=== PATIENT | female | born 1990 | race Caucasian/White ===

== ENCOUNTER 2017-06-10 23:14 | Emergency (ER) | payer OTHER ==
[2017-06-11 00:31] VITALS: BP 119/68; PULSE 53; TEMP 98.1; BMI 21.4
[2017-06-11 02:20] LABS: URINE APPEARANCE CLEAR; URINE BILIRUBIN NEGATIVE (NEGATIVE); URINE BLOOD NEGATIVE (NEGATIVE); URINE COLOR YELLOW; URINE GLUCOSE (UA) NEGATIVE (NEGATIVE); URINE KETONE 1+ (NEGATIVE); URINE NITRITE NEGATIVE (NEGATIVE); URINE PROTEIN NEGATIVE (NEGATIVE)
--- NOTE | 2017-06-11 02:33 | PDOC ---
History of Present Illness - General Chief Complaint: Pain Stated Complaint: STOMACH PAIN Time Seen by Provider: 06/11/17 02:33 - History of Present Illness Initial Comments: 06/11/17 02:39 Ms. Rao is a 27 yo female w/ pmh of hypothyroidism on synthroid who presents c/o a 1 day history of abdominal pain she localizes to the epigastric region. She reports she has had this pain since last night before dinner. She has had this pain one other time before and presented here for evaluation then as well. At that time she was given pepcid, maalox, and 1L NS with resolution of symptoms. The patient denies chest pain, shortness of breath, headache and dizziness. Denies fever, chills, nausea, vomit, diarrhea and constipation. Denies dysuria, frequency, urgency and hematuria. Allergies: NKDA Past History - Past Medical History Allergies/Adverse Reactions: Allergies Allergy/AdvReac Type Severity Reaction Status Date / Time No Known Drug Allergies Allergy Verified 06/11/17 00:29 Home Medications: Ambulatory Orders Levothyroxine [Synthroid -] 75 mcg PO DAILY 12/09/14 Calcium Carbonate/Simethicone [Maalox Advanced Tab Chew] 1 each PO ASDIR #20 tab.chew 06/11/17 Famotidine [Pepcid] 20 mg PO DAILY #20 tablet 06/11/17 Asthma: No Cancer: No Cardiac Disorders: No Diabetes: No HTN: No Seizures: No Thyroid Disease: Yes (Hypothyroid - takes synthroid) - Immunization History Immunization Up to Date: Yes - Suicide/Smoking/Psychosocial Hx Smoking History: Never smoked Have you smoked in the past 12 months: No Information on smoking cessation initiated: No Hx Alcohol Use: No Drug/Substance Use Hx: No Substance Use Type: None Hx Substance Use Treatment: No Review of Systems - Review of Systems Comments:: 06/11/17 03:56 GENERAL/CONSTITUTIONAL: No fever or chills. No weakness. HEAD, EYES, EARS, NOSE AND THROAT: No change in vision. No ear pain or discharge. No sore throat. CARDIOVASCULAR: No chest pain or shortness of breath RESPIRATORY: No cough, wheezing, or hemoptysis. GASTROINTESTINAL: +Pain above the belly-button described. No nausea, vomiting, diarrhea or constipation. GENITOURINARY: No dysuria, frequency, or change in urination. MUSCULOSKELETAL: No joint or muscle swelling or pain. No neck or back pain. SKIN: No rash NEUROLOGIC: No headache, vertigo, loss of consciousness, or change in strength/ sensation. ENDOCRINE: No increased thirst. No abnormal weight change HEMATOLOGIC/LYMPHATIC: No anemia, easy bleeding, or history of blood clots. ALLERGIC/IMMUNOLOGIC: No hives or skin allergy. *Physical Exam - Vital Signs Last Vital Signs Temp Pulse Resp BP Pulse Ox 98.1 F 53 L 14 119/68 99 06/11/17 00:29 06/11/17 00:29 06/11/17 00:29 06/11/17 00:29 06/11/17 00:29 - Physical Exam Comments: 06/11/17 03:56 GENERAL: Awake, alert, and fully oriented, in no acute distress HEAD: No signs of trauma, normocephalic, atraumatic EYES: PERRLA, EOMI, sclera anicteric, conjunctiva clear ENT: Auricles normal inspection, hearing grossly normal, nares patent, oropharynx clear without exudates. Moist mucosa NECK: Normal ROM, supple, no lymphadenopathy, JVD, or masses LUNGS: No distress, speaks full sentences, clear to auscultation bilaterally HEART: Regular rate and rhythm, normal S1 and S2, no murmurs, rubs or gallops, peripheral pulses normal and equal bilaterally. ABDOMEN: +TTP in epigastric region directly midline. Soft, normoactive bowel sounds. No guarding, no rebound. No masses EXTREMITIES: Normal inspection, Normal range of motion, no edema. No clubbing or cyanosis. NEUROLOGICAL: Cranial nerves II through XII grossly intact. Normal speech, normal gait, no focal sensorimotor deficits SKIN: Warm, Dry, normal turgor, no rashes or lesions noted. ED Treatment Course - LABORATORY CBC & Chemistry Diagram: 06/11/17 02:56 06/11/17 02:56 - ADDITIONAL ORDERS Additional order review: Laboratory Results 06/11/17 02:00 Urine Color Yellow Urine Appearance Clear Urine pH 6.0 Ur Specific [place] 1.031 Urine Protein Negative Urine Glucose (UA) Negative Urine Ketones 1+ H Urine Blood Negative Urine Nitrite Negative Urine Bilirubin Negative Urine Urobilinogen 2.0 H Urine HCG, Qual Negative Medical Decision Making - Medical Decision Making 06/11/17 03:57 Ms. Rao presents w/ symptoms she reports as identical to her prior presentation. CBC/CMP/Lipase taken for analysis of acute causes. 1L NS, Pepcid, and maalox given for symptomatic relief as this was successful in relieving her pain at her prior presentation. 06/11/17 05:19 Patient reports resolution of pain. Given this and labs grossly wnl, will d/c to home with instructions to follow-up w/ pcp in 1-2 days. Also will give GI referral. *DC/Admit/Observation/Transfer Diagnosis at time of Disposition: Reflux gastritis - Discharge Dispostion Disposition: HOME - Prescriptions Prescriptions: Calcium Carbonate/Simethicone [Maalox Advanced Tab Chew] 1 each PO ASDIR #20 tab.chew Famotidine [Pepcid] 20 mg PO DAILY #20 tablet - Referrals Referrals: Rula Gracia MD [Primary Care Provider] - - Patient Instructions Printed Discharge Instructions: DI for Abdominal Pain-Adult Additional Instructions: Follow-up with follow-up with Dr. Gracia within 2-3 days for referral to a brass burnisher (stomach doctor). There is a possibility that you need H. pylori testing as a possible cause of your pain. Return to the emergency department if you have any new, worsening or concerning symptoms. - Post Discharge Activity
[2017-06-11] MEDS ORDERED: MAG HYDROX/AL HYDROX/SIMETH 30 ML UNIT-DOSE CUP PO ONE (02:43)
[2017-06-11] MEDS ORDERED: SODIUM CHLORIDE 1,000 ML IV STA (02:43)
[2017-06-11] MEDS ORDERED: FAMOTIDINE IV 20 MG/12 ML VIAL IVPUSH SCH (02:45)
[2017-06-11] MEDS ORDERED: FAMOTIDINE 20 MG/50 ML IVPB 20 MG/50 ML MG IVPB ONE (02:52)
[2017-06-11] MEDS ORDERED: MAG HYDROX/AL HYDROX/SIMETH 30 ML UNIT-DOSE CUP ONE (02:52)
[2017-06-11 03:12] LABS: BASOPHIL 1.2 % (0-2.0); EOSINOPHIL 0.2 % (0-4.5); MCH 26.8 pg (25.7-33.7); MCHC 32.8 g/dl (32.0-36.0); MEAN CELL VOLUME 81.8 fl (80-96); MEAN PLT VOLUME 11.7 fl (7.5-11.1); NEUTROPHILS 69.9 % (42.8-82.8); PLATELET COUNT 220 K/MM3 (134-434); RDW 13.4 % (11.6-15.6)
[2017-06-11 03:38] LABS: ALBUMIN 3.9 g/dl (3.4-5.0); ALK PHOS 37 U/L (45-117); ANION GAP 10 (8-16); BILIRUBIN,TOTAL 0.2 mg/dL (0.2-1.0); CO2 25 mmol/L (21-32); CREATININE 0.5 mg/dL (0.55-1.02); GLUCOSE,RANDOM 125 mg/dL (74-106); SGOT/AST 8 U/L (15-37); SGPT/ALT 22 U/L (12-78); TOT PROT 7.8 g/dl (6.4-8.2)
--- NOTE | 2017-06-11 03:56 | PDOC ---
Attending Attestation - Resident Resident Name: Ulices Vanegas - HPI HPI: 06/11/17 03:53 27yo F hx hypothyroidsim p/w 1 day of epigastric abdominal pain. Pain is dull, non radiating, began before dinner. Patient relates the pain to eating fish. Denies N/V/D. Reports that the pain has subsided since being in the emergency department. Denies any history of abdominal surgery. Denies any urinary symptoms. Denies any vaginal bleeding or discharge. Otherwise, patient denies any dark or bloody stools, fevers, chills, chest pain , shortness of breath, lower extremity edema, headaches, focal weakness or numbness. - Physicial Exam PE: 06/11/17 05:25 GENERAL: Awake, alert, and fully oriented, in no acute distress HEAD: No signs of trauma EYES: PERRLA, EOMI, sclera anicteric, conjunctiva clear ENT: Auricles normal inspection, hearing grossly normal, nares patent, oropharynx clear without exudates. Moist mucosa NECK: Normal ROM, supple, no lymphadenopathy, JVD, or masses LUNGS: Breath sounds equal, clear to auscultation bilaterally. No wheezes, and no crackles HEART: Regular rate and rhythm, normal S1 and S2, no murmurs, rubs or gallops ABDOMEN: Soft, minimal epigastric ttp, normoactive bowel sounds. No guarding, no rebound. No masses. No CVAT EXTREMITIES: Normal range of motion, no edema. No clubbing or cyanosis. No cords, erythema, or tenderness NEUROLOGICAL: Normal speech, cranial nerves intact, negative pronator drift, 5/ 5 strength in all 4 extremities, normal sensation to light touch in all 4 extremities, normal cerebellar exam, normal gait, normal reflexes and tone SKIN: Warm, Dry, normal turgor, no rashes or lesions noted. - Medical Decision Making 06/11/17 05:25 27-year-old female presents with epigastric abdominal pain. Vitals are unremarkable. Exam with minimal epigastric tenderness to palpation. Differential includes but not limited to gastritis versus pancreatitis versus cholecystitis versus .
[2017-06-11 12:22] LABS: URINE LEUK ESTERASE Negative (NEGATIVE)
== END 2017-06-11 05:26 | disposition home or self-care (01) ==
LOC: JER 23:14
PROC: 3E033GC Introduction of Other Therapeutic Substance into Peripheral Vein, Percutaneous Approach (ICD-10-PCS; principal; 2017-06-10)
PROC: 3E0337Z Introduction of Electrolytic and Water Balance Substance into Peripheral Vein, Percutaneous Approach (ICD-10-PCS; 2017-06-10)
DX: K29.60 Other gastritis without bleeding (principal); E03.9 Hypothyroidism, unspecified
CPT/HCPCS: 36415; 80053; 81003; 83690; 84703; 85025; 87086; 96361; 96365; 99281-25; 99283-25

== ENCOUNTER 2019-04-13 07:00 | Inpatient (IN) | payer OTHER ==
[2019-04-13 07:56] LABS: BASO % 0.8 % (0-2.0); EOS % 0.7 % (0-4.5); HEMATOCRIT 34.9 % (32.4-45.2); HEMOGLOBIN 11.4 GM/dL (10.7-15.3); LYMPH % 32.1 % (8-40); MCHC 32.7 g/dl (32.0-36.0); MEAN CELL VOLUME 76.3 fl (80-96); MEAN PLT VOLUME 10.7 fl (7.5-11.1); MONO % 8.7 % (3.8-10.2); NEUT % 57.7 % (42.8-82.8); PLATELET COUNT 155 K/MM3 (134-434); RBC 4.57 M/mm3 (3.60-5.2); RDW 20.4 % (11.6-15.6); WHITE BLOOD COUNT 6.4 K/mm3 (4.0-10.0)
[2019-04-13 08:00] VITALS: BMI 30.2
[2019-04-13] MEDS ORDERED: CITRIC ACID/SODIUM CITRATE 30 ML UNIT-DOSE CUP PO ONE (08:06)
[2019-04-13] MEDS ORDERED: ELECTROLYTE-148 SOLN 1,000 ML IV SCH (08:15)
[2019-04-13 08:18] LABS: INR 1.01 (0.83-1.09); PROTHROMBIN TIME (PATIENT) 11.9 SEC (9.7-13.0)
[2019-04-13 08:19] LABS: ACTIVATED PTT 28.1 SECONDS (25.2-36.5)
[2019-04-13 08:27] LABS: BLOOD UREA NITROGEN 6.4 mg/dL (7-18); CALCIUM 8.1 mg/dL (8.5-10.1); CREATININE 0.4 mg/dL (0.55-1.3); POTASSIUM 3.4 mmol/L (3.5-5.1)
[2019-04-13] MEDS ORDERED: PROPOFOL 20 ML ONE (09:23)
[2019-04-13] MEDS ORDERED: ePHEDrine SULFATE 50 MG/1 ML AMPULE ONE (09:24)
[2019-04-13] MEDS ORDERED: SUCCINYLCHOLINE CHLORIDE 200 MG/10 ML SYRINGE ONE (09:24)
[2019-04-13] MEDS ORDERED: morphine SULFATE/PF 0.5 MG/ML (2cc Syringe - QUVA) ONE (09:24)
[2019-04-13] MEDS ORDERED: PHENYLEPHRINE HCL 10 MG/1 ML SINGLE DOSE VIAL ONE (09:39)
[2019-04-13] MEDS ORDERED: OXYTOCIN 20 UNITS in 0.9% NS 20 UNIT/1,000 ML INFUS.BAG IV ONE (10:15)
--- NOTE | 2019-04-13 10:24 | SURG ---
Surgery Client Resource Specialist Note Client Resource Specialist: Waldemar Watson PA-C Date of Service: 04/13/19 Diagnosis: repeat Procedure: I was present for the entirety of the operative procedure. For further detail, please refer to operative report. Visit type - Case Type Case Type: Scheduled - Emergency Emergency Visit: No - New patient This patient is new to me today: Yes Date on this admission: 04/13/19 - Critical Care Critical Care patient: No
[2019-04-13] MEDS ORDERED: BENZOCAINE 28 GM HEMORRHOIDAL OINTMENT TP PRN (10:34)
[2019-04-13] MEDS ORDERED: METHYLERGONOVINE MALEATE 0.2 MG/1 ML AMP IM PRN (10:34)
[2019-04-13] MEDS ORDERED: WITCH HAZEL 50% (TUCKS) 40 PAD/JAR PAD TP PRN (10:34)
[2019-04-13] MEDS: IBUPROFEN 800 MG/8 ML IJ IVPB PRN ×2 (11:45→19:38)
[2019-04-13] MEDS ORDERED: IBUPROFEN 800 MG/8 ML IJ IVPB ONE (11:45)
[2019-04-13] MEDS ORDERED: OXYTOCIN 20 UNITS in 0.9% NS 20 UNIT/1,000 ML INFUS.BAG IV SCH (12:45)
[2019-04-14] MEDS: IBUPROFEN 800 MG/8 ML IJ IVPB PRN (03:30)
--- NOTE | 2019-04-14 07:59 | HP ---
Past Medical History - Primary Care Physician PCP:: Berta Duron - Admission Chief Complaint: Previous section History of Present Illness: 29 yo EDC 04/19/19 EGA 39 weeks with previous csx3 for repeat CS no ROM no bleeeding or CABALLERO History Source: Patient Limitations to Obtaining History: No Limitations - Past Medical History ...: 4 ...Para: 3 ...Term: 3 ...: 0 ...Spon : 0 ...Induced : 0 ...Multiple Gestation: 0 ...EDC by Sono: 04/19/19 - Past Surgical History Past Surgical History: Yes: Hx Myomectomy: No Hx Transabdominal Cerclage: No - Smoking History Smoking history: Never smoked Have you smoked in the past 12 months: No - Alcohol/Substance Use Hx Alcohol Use: No History of Substance Use: reports: None - Social History History of Recent Travel: No Home Medications - Allergies Allergies/Adverse Reactions: Allergies Allergy/AdvReac Type Severity Reaction Status Date / Time No Known Drug Allergies Allergy Verified 04/13/19 07:32 - Home Medications Home Medications: Ambulatory Orders Levothyroxine [Synthroid -] 75 mcg PO DAILY 12/09/14 Calcium Carbonate/Simethicone [Maalox Advanced Tab Chew] 1 each PO ASDIR #20 tab.chew 06/11/17 Famotidine [Pepcid] 20 mg PO PRN 04/13/19 Vits96/Iron Fum/Folic [ Tablet] 1 each PO DAILY 04/13/19 Physical Exam - Maternity Vital Signs: Vital Signs Temperature 97.5 F L 04/14/19 06:00 Pulse Rate 80 04/14/19 06:00 Respiratory Rate 18 04/14/19 06:00 Blood Pressure 109/65 04/14/19 06:00 O2 Sat by Pulse Oximetry (%) 96 04/13/19 11:30 Constitutional: Yes: Well Nourished, No Distress Neck: Yes: WNL Cardiovascular: Yes: WNL Lungs: Clear to auscultation Breast(s): Yes: WNL - Abdominal Exam/OB Fundal Height: 40 Number of Fetuses: Single Presentation: Vertex Contractions: No Category: I Decelerations: None - Vaginal Exam/OB Vaginal Bleediing: No Presentation: Vertex/Position - Physical Exam Musculoskeletal: Yes: WNL Extremities: Yes: WNL Edema: No Psychiatric: Yes: WNL, Alert, Oriented - Labs Lab Results: CBC, BMP 04/13/19 07:30 04/13/19 07:33 Hemorrhage Risk Assessment - Risk Factors Medium Risk Factors: Yes: Prior , uterine surgery,or multiple laparotomies Risk Score: 1 Risk Level: Medium Risk Problem List - Problems (1) Previous delivery affecting , antepartum Code(s): O34.219 - MATERNAL CARE FOR UNSP TYPE SCAR FROM PREVIOUS DEL Assessment/Plan IUP at 39 week Previous section Cat1 GBS neg Plan repeat Section
--- NOTE | 2019-04-14 08:04 | OP ---
Operative Note - Note: Operative Date: 04/13/19 Pre-Operative Diagnosis: Previous Section x 3. IUP at 39 week Operation: Repeat Section Findings: Live male infant Post-Operative Diagnosis: Same as Pre-op Surgeon: Berta Duron City Designer: Waldemar Watson Anesthesia: Spinal Estimated Blood Loss (mls): 600 Operative Report Dictated: Yes
--- NOTE | 2019-04-14 08:31 | PN ---
Progress Note (short form) - Note Progress Note: 29 yo F s/p repeat C/S. Fetus at 39 weeks at time of presentation. s/p Duramorph spinal. Patient without complaints. Sitting in bed with . VS: 97.5F, 80, 18, 109/65, 99%RA A&O x 3 RRR CTA b/l LOPEZ Spinal anesthesia w/o complications. Routine follow-up. Please call with questions.
[2019-04-14 08:36] LABS: BASO % 0.8 % (0-2.0); EOS % 0.5 % (0-4.5); HEMATOCRIT 30.8 % (32.4-45.2); LYMPH % 13.3 % (8-40); MCH 25.2 pg (25.7-33.7); MCHC 32.5 g/dl (32.0-36.0); MEAN CELL VOLUME 77.6 fl (80-96); MEAN PLT VOLUME 10.6 fl (7.5-11.1); MONO % 7.5 % (3.8-10.2); NEUT % 77.9 % (42.8-82.8); PLATELET COUNT 121 K/MM3 (134-434); RBC 3.97 M/mm3 (3.60-5.2); RDW 20.4 % (11.6-15.6); WHITE BLOOD COUNT 6.3 K/mm3 (4.0-10.0)
--- NOTE | 2019-04-14 08:44 | PN ---
Progress Note (SOAP) - Subjective Chief Complaint: Pt doing well ambulating in bathroom - Current Medications Current Medications: Active Medications Benzocaine (Americaine Ointment -) 1 applic TP PRN PRN PRN Reason: Pain - Topical Bisacodyl (Dulcolax Suppository -) 10 mg RC PRN PRN PRN Reason: CONSTIPATION Parenteral Electrolytes (Plasma-Lyte 148 -) 1,000 mls @ 125 mls/hr IV ASDIR [facility] Last Admin: 04/13/19 07:30 Dose: 125 mls/hr Oxytocin/Sodium Chloride (Normal Saline+20 Units Oxytocin -) 20 unit in 1,000 mls @ 125 mls/hr IV ASDIR [facility] Last Admin: 04/13/19 17:54 Dose: 125 mls/hr Ibuprofen (Caldolor Injection -) 800 mg IVPB Q8H PRN PRN Reason: FEVER Last Admin: 04/14/19 03:30 Dose: 800 mg Ibuprofen (Motrin -) 600 mg PO Q4H PRN PRN Reason: PAIN LEVEL 1 - 3 Influenza Virus Vaccine Quadrival (Flulaval Quad ) 60 mcg IM .ONCE ONE Stop: 04/14/19 10:01 Levothyroxine Sodium (Synthroid -) 75 mcg PO DAILY@0700 [facility] Methylergonovine Maleate (Methergine Injection -) 0.2 mg IM Q4H PRN PRN Reason: Excessive Bleeding (L&D) Oxycodone HCl (Roxicodone -) 5 mg PO Q4H PRN PRN Reason: PAIN LEVEL 4 - 6 Oxycodone HCl (Roxicodone -) 10 mg PO Q4H PRN PRN Reason: PAIN LEVEL 7 - 10 Multivit/Folic Acid/Iron ( Vitamins (Sjr) -) 1 tab PO DAILY [facility] Simethicone (Mylicon -) 80 mg PO Q4H PRN PRN Reason: GAS Witch Mariaa/Glycerin (Tucks Pads -) 1 pad TP PRN PRN PRN Reason: Pain - Topical - Objective Vital Signs: Vital Signs Temperature 97.5 F L 04/14/19 06:00 Pulse Rate 80 04/14/19 06:00 Respiratory Rate 18 04/14/19 06:00 Blood Pressure 109/65 04/14/19 06:00 O2 Sat by Pulse Oximetry (%) 96 10/07/19 11:30 Constitutional: Yes: Well Nourished, No Distress Gastrointestinal: Yes: WNL, Soft Breast(s): Yes: WNL Musculoskeletal: Yes: WNL Extremities: Yes: WNL Edema: No Wound/Incision: Yes: Clean/Dry, Well Approximated, Steri Strips, Open to air Neurological: Yes: WNL, Alert, Oriented Labs Lab Results: CBC, BMP 04/13/19 07:33 Problem List - Problems (1) Previous delivery affecting , antepartum Code(s): O34.219 - MATERNAL CARE FOR UNSP TYPE SCAR FROM PREVIOUS DEL Assessment/Plan SP reepat CS x 4 POD1 stable ambulating dressing removed Plan Continue present management
[2019-04-14] MEDS ORDERED: FLU VACC QS2019-20(6MOS UP)/PF 60 MCG/0.5 ML SYRINGE IM ONE (09:15)
[2019-04-14] MEDS: LEVOTHYROXINE NA 75 MCG TABLET (FP) PO SCH (09:45)
[2019-04-14] MEDS: PRENATAL VITAMINS W/ FOLIC ACID TABLET (FP) PO SCH (09:45)
[2019-04-14] MEDS ORDERED: FLU VACCINE QUAD 60 MCG/0.5 ML (MDV 19-20) IM ONE (10:00)
[2019-04-14] MEDS ORDERED: BISACODYL 10 MG SUPP.RECT RC PRN (10:34)
[2019-04-14] MEDS ORDERED: oxyCODONE HCL 5 MG TABLET PO PRN (10:34)
--- NOTE | 2019-04-14 11:40 | OP ---
DATE OF OPERATION: 04/13/2019 PREOPERATIVE DIAGNOSES: Previous section, intrauterine at 39 weeks. OPERATION: Repeat section x4 low transverse. FINDINGS: Live male . SURGEON: Berta Duron MD FINISHER OPERATOR: MD anthony Ayala. ANESTHESIA: Spinal. ESTIMATED BLOOD LOSS: 600 mL PROCEDURE: Patient was taken to the operating room and placed in the supine position, prepped and draped in the usual sterile fashion and a timeout was performed within accordance of the hospital regulation. A Pfannenstiel skin incision was made through the patient's previous scar. Cautery was then used to cut of the layers of the abdominal wall to the level of the fascia. The fascia was cut in the midline and cautery was then used to open the fascia. A small insertion hook was then used to bluntly and sharply dissect the rectus muscle off the fascia and the muscle was split in the midline. The peritoneal cavity was then entered and carried up and down with bladder retractor then placed. The vesicouterine section was then entered. The bladder was bluntly dissected out of the operative field. The scalpel was then used to make a low transverse uterine incision. The incision was carried up using the bandage scissors. Live male infant was delivered in the OT position. Nose and mouth suction performed. The shoulders were delivered without difficulty. The cord was clamped and cut. Cord blood obtained. Cord pH obtained. The placenta was manually extracted from the uterus. The uterus was exteriorized and cleaned with clean lap pads. Uterine incision closed using 0 Biosyn suture; the first layer continuous and locking, 2nd layer imbricating the first layer. Hemostasis was achieved. Tubes and ovaries noted to be normal. The uterus was interiorized and the abdominal cavity cleaned with clean lap pads. Abdominal sweep was done. The peritoneal cavity was then closed using 0 Biosyn suture in continuous stitch. Muscle was approximated in the midline using 0 Biosyn suture. The fascia was then closed using 0 Vicryl suture in 2 parts. The skin was then closed using 3-0 Vicryl in a subcuticular fashion. Wounds washed and dressed. Patient tolerated the procedure well. Estimated blood loss 600 mL. Prachi GUADARRAMA/[id number] [facility]
[2019-04-14] MEDS: IBUPROFEN 600 MG TABLET (FP) PO PRN ×2 (13:53→21:58)
[2019-04-14] MEDS: SIMETHICONE 80 MG TAB.CHEW (FP) PO PRN ×2 (13:54→21:58)
[2019-04-14] MEDS: oxyCODONE HCL 5 MG TABLET PO PRN ×2 (15:11→21:59)
[2019-04-15] MEDS: SIMETHICONE 80 MG TAB.CHEW (FP) PO PRN ×3 (06:22→22:07)
[2019-04-15] MEDS: oxyCODONE HCL 5 MG TABLET PO PRN ×3 (06:22→22:07)
[2019-04-15] MEDS: LEVOTHYROXINE NA 75 MCG TABLET (FP) PO SCH (06:23)
[2019-04-15] MEDS: IBUPROFEN 600 MG TABLET (FP) PO PRN ×3 (06:23→22:08)
--- NOTE | 2019-04-15 06:34 | PN ---
Progress Note (SOAP) - Subjective Chief Complaint: Pt doing well lying in bedroom Pt desires to go home - Current Medications Current Medications: Active Medications Benzocaine (Americaine Ointment -) 1 applic TP PRN PRN PRN Reason: Pain - Topical Bisacodyl (Dulcolax Suppository -) 10 mg RC PRN PRN PRN Reason: CONSTIPATION Ibuprofen (Caldolor Injection -) 800 mg IVPB Q8H PRN PRN Reason: FEVER Last Admin: 04/14/19 03:30 Dose: 800 mg Ibuprofen (Motrin -) 600 mg PO Q4H PRN PRN Reason: PAIN LEVEL 1 - 3 Last Admin: 04/15/19 06:23 Dose: 600 mg Levothyroxine Sodium (Synthroid -) 75 mcg PO DAILY@0700 [facility] Last Admin: 04/15/19 06:23 Dose: 75 mcg Methylergonovine Maleate (Methergine Injection -) 0.2 mg IM Q4H PRN PRN Reason: Excessive Bleeding (L&D) Oxycodone HCl (Roxicodone -) 5 mg PO Q4H PRN PRN Reason: PAIN LEVEL 4 - 6 Last Admin: 04/15/19 06:22 Dose: 5 mg Oxycodone HCl (Roxicodone -) 10 mg PO Q4H PRN PRN Reason: PAIN LEVEL 7 - 10 Multivit/Folic Acid/Iron ( Vitamins (Sjr) -) 1 tab PO DAILY [facility] Last Admin: 04/14/19 09:45 Dose: 1 tab Simethicone (Mylicon -) 80 mg PO Q4H PRN PRN Reason: GAS Last Admin: 04/15/19 06:22 Dose: 80 mg Witch Mariaa/Glycerin (Tucks Pads -) 1 pad TP PRN PRN PRN Reason: Pain - Topical - Objective Vital Signs: Vital Signs Temperature 98 F 04/14/19 22:00 Pulse Rate 84 04/14/19 22:00 Respiratory Rate 18 04/14/19 22:00 Blood Pressure 135/59 L 04/14/19 22:00 O2 Sat by Pulse Oximetry (%) 96 04/13/19 11:30 Constitutional: Yes: Well Nourished, No Distress Gastrointestinal: Yes: WNL, Soft ....Post : Yes: Uterus firm, Uterus non-tender Breast(s): Yes: WNL Musculoskeletal: Yes: WNL Extremities: Yes: WNL Edema: No Wound/Incision: Yes: Clean/Dry, Well Approximated, Steri Strips, Open to air Neurological: Yes: WNL, Alert, Oriented Labs Lab Results: CBC, BMP 04/14/19 07:23 04/13/19 07:33 Problem List - Problems (1) Previous delivery affecting , antepartum Code(s): O34.219 - MATERNAL CARE FOR UNSP TYPE SCAR FROM PREVIOUS DEL Assessment/Plan SP repeat CS x 4 POD2 stable Plan Continue present management
[2019-04-15] MEDS: PRENATAL VITAMINS W/ FOLIC ACID TABLET (FP) PO SCH (10:06)
--- NOTE | 2019-04-15 16:40 | PATH ---
Surgical Pathology Report Patient Name: ELSIE BROCK Med. Rec. #: [id number] /Age/Gender: 1990 (Age: 29) / F Account: [id number] Location: [facility] OBS/INFECTION CONTROL NURSE Taken: 04/13/2019 Received: 04/14/2019 Reported: 04/15/2019 Physicians: Berta Duron M.D. Specimen(s) Received PLACENTA Clinical History 39.1 weeks, , hypothyroidism, anemia, x3 Final Diagnosis PLACENTA: THIRD TRIMESTER PLACENTA. TRIVASCULAR CORD. MEMBRANES WITH NO DIAGNOSTIC ABNORMALITIES. Electronically Signed Penny Sotomayor M.D. Gross Description The specimen is received fresh labeled placenta and is a 382 gram, 15 x15 x 2.1cm. placenta with attached membranes and umbilical cord. The attached membranes are glistening, translucent, and insert marginally. The umbilical cord measures 10 cm. in length and averages 1.0 cm. in diameter. The cord inserts centrally, 2.5 centimeter to the nearest margin. No true knots or strictures are identified. Cut surface of the umbilical cord reveals 3 vessels. Sectioning reveals red-brown, spongy parenchyma. No lesions are identified. Windows Systems Architect sections are submitted in three cassettes as follows: 1- membrane rolls and umbilical cord; 2-3- full thickness sections of placenta KWS/04/14/2019 sulki/04/14/2019
[2019-04-16] MEDS: LEVOTHYROXINE NA 75 MCG TABLET (FP) PO SCH (06:20)
[2019-04-16] MEDS: IBUPROFEN 600 MG TABLET (FP) PO PRN ×2 (06:24→11:08)
--- NOTE | 2019-04-16 06:32 | DS ---
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 Vital Signs: Vital Signs Temperature 97.7 F 04/15/19 21:49 Pulse Rate 74 04/15/19 21:49 Respiratory Rate 20 04/15/19 21:49 Blood Pressure 119/68 04/15/19 21:49 O2 Sat by Pulse Oximetry (%) 96 04/13/19 11:30 Labs: CBC, BMP 04/14/19 07:23 04/13/19 07:33 Delivery - Delivery Section: Repeat, Low Flap Transverse Type of Anesthesia: Spinal Episiotomy/Laceration: None EBL (cc): 500 Delivery, Single - Stages of Labor Date of Delivery: 04/13/19 Time of Delivery: 09:49 Time Placenta Delivered: 09:50 Placenta: Yes: Manual Removal - Condition of Infant Puppet Maker/Laboratory Asst Present: Yes Name: Wanda De La Vega Gender: Male Weight: 7 lb 3 oz Position: Left, OA Total Hours ROM (Hrs/Mins): 1 minute - 1 Minute Total Score: 9 5 Minutes Total Score: 9 - Feeding Plan Initial Plan: Exclusive throughout hospitalization Discharge Summary Problems reviewed: Yes Reason For Visit: C SECTION Current Active Problems Previous delivery affecting , antepartum (Acute) Hospital Course: Pt admitted on 04/13/19 for scheduled repeat cesareen section. The patient underwent an uncomplicated procedure/delivery (see operative report) on that same date. The patient had an uncomplicated post op course. On post op day 3 was voiding, tolerating diet, ambulating, and passing flatus. She was discharged home in stable condition on post op day 3. Condition: Good - Instructions Diet, Activity, Other Instructions: Physical activity Resume your normal everyday activity as tolerated no heavy lifting or exercise until seen by your surgeon. You may walk unlimited julio cesar of and climb stairs. You may resume driving the car when you feel safe and comfortable behind the wheel. No sexual activity as instructed. Wound care If you have a bandage, leave it on, and keep dry for 48-72 hours. After that time discard the outer bandage. If they are tapes on the skin under the out of bandage leave them in place. They will peel off in the next 7 to 10 days. Do Not Peel them off. You may shower the day after surgery. If there are tapes present on the skin, you may shower over them. Diet There are no dietary restrictions. Eat healthy, high-fiber foods. Drink 6 to 8 glasses of liquid each day. This will assist in keeping your bowels are regular. Pain management You may take Tylenol or acetaminophen or Ibuprofen (for example, Motrin, Advil etc.) from my pain prescription medication is ordered should be taken as prescribed for moderate to severe pain. Call MD for any of the following: Severe pain not relieved by medication Fever of 101 or higher Excessive bleeding or drainage on dressing Inability to urinate Referrals: Berta Duron MD [Staff Physician] - Disposition: HOME - Home Medications Comprehensive Discharge Medication List: Ambulatory Orders Levothyroxine [Synthroid -] 75 mcg PO DAILY 12/09/14 Calcium Carbonate/Simethicone [Maalox Advanced Tab Chew] 1 each PO ASDIR #20 tab.chew 06/11/17 Famotidine [Pepcid] 20 mg PO PRN 04/13/19 Vits96/Iron Fum/Folic [ Tablet] 1 each PO DAILY 04/13/19 Ibuprofen [Motrin -] 600 mg PO QID #28 tablet 04/14/19
[2019-04-16 07:51] LABS: EOS % 4.8 % (0-4.5); HEMATOCRIT 30.5 % (32.4-45.2); LYMPH % 28.1 % (8-40); MCH 25.2 pg (25.7-33.7); MCHC 32.6 g/dl (32.0-36.0); MEAN CELL VOLUME 77.3 fl (80-96); MEAN PLT VOLUME 10.1 fl (7.5-11.1); MONO % 7.9 % (3.8-10.2); NEUT % 58.2 % (42.8-82.8); PLATELET COUNT 146 K/MM3 (134-434); RBC 3.95 M/mm3 (3.60-5.2); RDW 20.1 % (11.6-15.6); WHITE BLOOD COUNT 3.8 K/mm3 (4.0-10.0)
[2019-04-16] MEDS: PRENATAL VITAMINS W/ FOLIC ACID TABLET (FP) PO SCH (09:00)
[2019-04-16 09:32] VITALS: BP 109/59; PULSE 60; TEMP 97.6
[2019-04-16] MEDS: SIMETHICONE 80 MG TAB.CHEW (FP) PO PRN (11:08)
== END 2019-04-16 12:00 | disposition home or self-care (01) | DRG 788 ==
LOC: JLDR 07:00 → J3W 12:40
PROVIDERS: ADMIT Obstetrics & Gynecology; ATTEND Obstetrics & Gynecology
PROC: 10D00Z1 Extraction of Products of Conception, Low, Open Approach (ICD-10-PCS; principal; 2019-04-13)
DX: O34.211 Maternal care for low transverse scar from previous cesarean delivery (principal); Z3A.39 39 weeks gestation of pregnancy; Z37.0 Single live birth
CPT/HCPCS: 36415; 36600; 80048; 82803; 85025; 85610; 85730; 86593; 86850; 86900; 86901; 87389; 88307-TC; 90686

== ENCOUNTER 2021-12-01 07:52 | Day surgery (SDC) | payer OTHER ==
[2021-12-01] MEDS ORDERED: IRON SUCROSE INJECTION 300 MG in SODIUM CHLORIDE 250 ML IVPB ONE (09:30)
[2021-12-01 09:37] VITALS: TEMP 98.8
[2021-12-01 10:29] LABS: EOS % 1.4 % (0-4.5); HEMATOCRIT 27.1 % (32.4-45.2); HEMOGLOBIN 8.3 GM/dL (10.7-15.3); LYMPH % 32.5 % (8-40); MCHC 30.6 g/dl (32.0-36.0); MEAN CELL VOLUME 62.1 fl (80-96); NEUT % 52.1 % (42.8-82.8); PLATELET COUNT 276 10^3/uL (134-434); RBC 4.36 M/mm3 (3.60-5.2); RDW 18.9 % (11.6-15.6); WHITE BLOOD COUNT 4.3 K/mm3 (4.0-10.0)
[2021-12-01 11:06] LABS: ANISOCYTOSIS 3+; MACROCYTOSIS 0
[2021-12-01 11:46] VITALS: BP 108/62; PULSE 75
== END 2021-12-01 11:45 | disposition home or self-care (01) ==
LOC: JONCNONCHE 07:52
PROVIDERS: ATTEND Internal Medicine Hematology & Oncology
PROC: 3E033GC Introduction of Other Therapeutic Substance into Peripheral Vein, Percutaneous Approach (ICD-10-PCS; principal; 2021-12-01)
DX: D50.9 Iron deficiency anemia, unspecified (principal)
CPT/HCPCS: 36415; 85025; 96365; J1756

== ENCOUNTER 2021-12-05 06:44 | Day surgery (SDC) | payer OTHER ==
[2021-12-05] MEDS ORDERED: IRON SUCROSE INJECTION 300 MG in SODIUM CHLORIDE 250 ML IVPB ONE (10:00)
[2021-12-05 10:09] LABS: BASO % 1.7 % (0-2.0); EOS % 2.1 % (0-4.5); HEMATOCRIT 26.2 % (32.4-45.2); HEMOGLOBIN 8.3 GM/dL (10.7-15.3); LYMPH % 29.5 % (8-40); MCH 20.2 pg (25.7-33.7); MCHC 31.9 g/dl (32.0-36.0); MEAN CELL VOLUME 63.3 fl (80-96); MEAN PLT VOLUME 9.8 fl (7.5-11.1); MONO % 9.6 % (3.8-10.2); NEUT % 57.1 % (42.8-82.8); PLATELET COUNT 305 10^3/uL (134-434); RBC 4.13 M/mm3 (3.60-5.2); WHITE BLOOD COUNT 4.3 K/mm3 (4.0-10.0)
[2021-12-05 10:58] LABS: ANISOCYTOSIS 3+; MACROCYTOSIS 1+
[2021-12-05 10:59] LABS: PLATELET ESTIMATE ADEQUATE
[2021-12-05 17:28] VITALS: BP 102/64; PULSE 86; TEMP 98.5
== END 2021-12-05 11:45 | disposition home or self-care (01) ==
LOC: JONCNONCHE 06:44
PROVIDERS: ATTEND Internal Medicine Hematology & Oncology
PROC: 3E033GC Introduction of Other Therapeutic Substance into Peripheral Vein, Percutaneous Approach (ICD-10-PCS; principal; 2021-12-05)
DX: D50.9 Iron deficiency anemia, unspecified (principal)
CPT/HCPCS: 36415; 85025; 96365; J1756

== ENCOUNTER 2021-12-12 06:49 | Day surgery (SDC) | payer OTHER ==
[2021-12-12] MEDS ORDERED: ONDANSETRON INJECTION 8 MG in SODIUM CHLORIDE 50 ML IVPB ONE (10:00)
[2021-12-12] MEDS ORDERED: IRON SUCROSE INJECTION 100 MG in SODIUM CHLORIDE 100 ML IVPB ONE (10:00)
[2021-12-12] MEDS ORDERED: IRON SUCROSE INJECTION 300 MG in SODIUM CHLORIDE 250 ML IVPB ONE (10:00)
[2021-12-12 11:22] LABS: BASO % 1.8 % (0-2.0); EOS % 1.4 % (0-4.5); HEMATOCRIT 30.6 % (32.4-45.2); HEMOGLOBIN 9.7 GM/dL (10.7-15.3); LYMPH % 31.3 % (8-40); MCH 20.8 pg (25.7-33.7); MCHC 31.8 g/dl (32.0-36.0); MEAN CELL VOLUME 65.5 fl (80-96); MEAN PLT VOLUME 11.2 fl (7.5-11.1); MONO % 7.5 % (3.8-10.2); PLATELET COUNT 280 10^3/uL (134-434); RBC 4.67 M/mm3 (3.60-5.2); RDW 27.6 % (11.6-15.6); WHITE BLOOD COUNT 4.3 K/mm3 (4.0-10.0)
[2021-12-12 11:31] LABS: ALBUMIN 3.6 g/dl (3.4-5.0)
[2021-12-12 11:34] LABS: BILIRUBIN,DIRECT 0.1 mg/dL (0.0-0.2)
[2021-12-12 11:36] LABS: BILIRUBIN,TOTAL 0.4 mg/dL (0.2-1); TOT PROT 7.4 g/dl (6.4-8.2)
[2021-12-12 11:53] LABS: ALBUMIN 3.4 g/dl (3.4-5.0); BLOOD UREA NITROGEN 8.5 mg/dL (7-18); CALCIUM 8.7 mg/dL (8.5-10.1)
[2021-12-12 11:56] LABS: CREATININE 0.5 mg/dL (0.55-1.3)
[2021-12-12 11:58] LABS: BILIRUBIN,TOTAL 0.4 mg/dL (0.2-1); TOT PROT 7.4 g/dl (6.4-8.2)
[2021-12-12 12:11] LABS: ANISOCYTOSIS 3+; MACROCYTOSIS 2+
== END 2021-12-12 10:30 | disposition home or self-care (01) ==
LOC: JONCNONCHE 06:49
PROVIDERS: ATTEND Internal Medicine Hematology & Oncology
DX: Z53.8 Procedure and treatment not carried out for other reasons (principal)
CPT/HCPCS: 36415; 80053; 80076; 82150; 83690; 83735; 84703; 85025

== ENCOUNTER 2021-12-12 10:33 | Emergency (ER) | payer OTHER ==
[2021-12-12 10:53] VITALS: TEMP 97.9; BMI 26.5
[2021-12-12] MEDS ORDERED: METOCLOPRAMIDE HCL INJECTION 10 MG/2 ML VIAL IVPUSH ONE (12:17)
[2021-12-12] MEDS ORDERED: FAMOTIDINE 20 MG/50 ML IVPB 20 MG/50 ML MG IVPB ONE ×2 (12:17→12:36)
[2021-12-12] MEDS ORDERED: ACETAMINOPHEN 1000 MG/100 ML BAG IVPB ONE (12:17)
[2021-12-12] MEDS ORDERED: SODIUM CHLORIDE 1,000 ML IV STA (12:17)
[2021-12-12] MEDS ORDERED: METOCLOPRAMIDE HCL INJECTION 10 MG/2 ML VIAL ONE (12:35)
[2021-12-12] MEDS ORDERED: ACETAMINOPHEN INJECTION 100 ML IVPB ONE (12:35)
[2021-12-12 12:44] VITALS: BP 128/62; PULSE 87
[2021-12-12 12:48] LABS: BASO % 1.2 % (0-2.0); EOS % 1.2 % (0-4.5); HEMATOCRIT 34.1 % (32.4-45.2); HEMOGLOBIN 10.5 GM/dL (10.7-15.3); LYMPH % 33.4 % (8-40); MCH 20.6 pg (25.7-33.7); MCHC 30.8 g/dl (32.0-36.0); MEAN CELL VOLUME 66.9 fl (80-96); MEAN PLT VOLUME 9.9 fl (7.5-11.1); MONO % 6.5 % (3.8-10.2); NEUT % 57.7 % (42.8-82.8); PH,URINE 5.5 (5.0-8.0); PLATELET COUNT 267 10^3/uL (134-434); RDW 27.3 % (11.6-15.6); URINE APPEARANCE CLEAR; URINE BILIRUBIN NEGATIVE (NEGATIVE); URINE COLOR YELLOW; URINE GLUCOSE (UA) NEGATIVE (NEGATIVE); URINE KETONE NEGATIVE (NEGATIVE); URINE LEUK ESTERASE NEGATIVE (NEGATIVE); URINE NITRITE NEGATIVE (NEGATIVE); URINE PROTEIN NEGATIVE (NEGATIVE); URINE UROBILINOGEN 0.2 mg/dL (0.2-1.0); WHITE BLOOD COUNT 4.9 K/mm3 (4.0-10.0)
[2021-12-12 13:02] LABS: BLOOD UREA NITROGEN 8.3 mg/dL (7-18)
[2021-12-12 13:04] LABS: CALCIUM 9.2 mg/dL (8.5-10.1)
[2021-12-12 13:08] LABS: CREATININE 0.6 mg/dL (0.55-1.3)
[2021-12-12 13:09] LABS: BILIRUBIN,TOTAL 0.6 mg/dL (0.2-1); TOT PROT 8.5 g/dl (6.4-8.2)
== END 2021-12-12 13:51 | disposition home or self-care (01) ==
LOC: JER 10:33
PROC: 3E033GC Introduction of Other Therapeutic Substance into Peripheral Vein, Percutaneous Approach (ICD-10-PCS; principal; 2021-12-12)
DX: O26.899 Other specified pregnancy related conditions, unspecified trimester (principal); R10.13 Epigastric pain; Z3A.00 Weeks of gestation of pregnancy not specified
CPT/HCPCS: 36415; 80053; 81003; 83690; 84702; 84703; 85025; 87086; 87186; 99284-25

== ENCOUNTER 2022-06-27 10:03 | Day surgery (SDC) | payer OTHER ==
[~2022-06-27 10:03] MED LIST: IRON SUCROSE INJECTION 200 MG in SODIUM CHLORIDE 100 ML IVPB ONE
[2022-06-27 15:25] VITALS: BP 92/52; PULSE 90; RESP 18; TEMP 97.5
== END 2022-06-27 11:25 | disposition home or self-care (01) ==
LOC: JONCNONCHE 10:03
PROVIDERS: ATTEND Internal Medicine Hematology & Oncology
PROC: 3E033GC Introduction of Other Therapeutic Substance into Peripheral Vein, Percutaneous Approach (ICD-10-PCS; principal; 2022-06-27)
DX: D50.9 Iron deficiency anemia, unspecified (principal)
CPT/HCPCS: 96365; J1756

== ENCOUNTER 2022-07-04 10:29 | Day surgery (SDC) | payer OTHER ==
[2022-07-04 15:15] VITALS: BP 100/59; PULSE 101; RESP 18; TEMP 98.1
== END 2022-07-04 11:45 | disposition home or self-care (01) ==
LOC: J7W 10:29 → JONCNONCHE 10:29
PROVIDERS: ATTEND Internal Medicine Hematology & Oncology
PROC: 3E033GC Introduction of Other Therapeutic Substance into Peripheral Vein, Percutaneous Approach (ICD-10-PCS; principal; 2022-07-04)
DX: E61.1 Iron deficiency (principal)
CPT/HCPCS: 96365; J1756

== ENCOUNTER 2022-07-11 10:31 | Day surgery (SDC) | payer OTHER ==
[2022-07-11 17:00] VITALS: RESP 18
[2022-07-11 17:03] VITALS: BP 93/54; PULSE 86
[2022-07-11 17:04] VITALS: TEMP 97.9
== END 2022-07-11 12:00 | disposition home or self-care (01) ==
LOC: JONCNONCHE 10:31
PROVIDERS: ATTEND Internal Medicine Hematology & Oncology
PROC: 3E043GC Introduction of Other Therapeutic Substance into Central Vein, Percutaneous Approach (ICD-10-PCS; principal; 2022-07-11)
DX: E61.1 Iron deficiency (principal)
CPT/HCPCS: 96365; J1756

== ENCOUNTER 2022-07-18 10:09 | Day surgery (SDC) | payer OTHER ==
[2022-07-18 13:59] VITALS: BP 96/63; PULSE 99; RESP 18; TEMP 97.5
== END 2022-07-18 11:25 | disposition home or self-care (01) ==
LOC: JONCNONCHE 10:09
PROVIDERS: ATTEND Internal Medicine Hematology & Oncology
PROC: 3E033GC Introduction of Other Therapeutic Substance into Peripheral Vein, Percutaneous Approach (ICD-10-PCS; principal; 2022-07-18)
DX: D50.9 Iron deficiency anemia, unspecified (principal)
CPT/HCPCS: J1756

== ENCOUNTER 2022-07-30 05:50 | Inpatient (IN) | payer OTHER ==
[2022-07-30] MEDS ORDERED: ELECTROLYTE-148 SOLN 500 ML IV ONE (06:30)
[2022-07-30] MEDS ORDERED: CITRIC ACID/SODIUM CITRATE 30 ML UNIT-DOSE CUP PO ONE (06:30)
[2022-07-30 06:37] VITALS: BMI 30.9
[2022-07-30 06:52] LABS: HEMATOCRIT 33.4 % (32.4-45.2); HEMOGLOBIN 10.5 GM/dL (10.7-15.3); MCH 21.6 pg (25.7-33.7); MCHC 31.4 g/dl (32.0-36.0); MEAN CELL VOLUME 68.9 fl (80-96); MEAN PLT VOLUME 8.9 fl (7.5-11.1); PLATELET COUNT 190 10^3/uL (134-434); RBC 4.86 M/mm3 (3.60-5.2); RDW 28.6 % (11.6-15.6); WHITE BLOOD COUNT 7.3 K/mm3 (4.0-10.0)
[2022-07-30] MEDS ORDERED: ELECTROLYTE-148 SOLN 1,000 ML IV SCH ×2 (07:00→08:00)
[2022-07-30] MEDS ORDERED: morphine SULFATE (PF) 1 MG/2 ML SYRINGE ONE (07:57)
[2022-07-30] MEDS ORDERED: KETOROLAC TROMETHAMINE 30 MG/1 ML VIAL ONE (07:57)
[2022-07-30] MEDS ORDERED: FENTANYL CITRATE/PF 50 MCG/ML VIAL ONE (07:57)
[2022-07-30] MEDS ORDERED: OXYTOCIN 10 UNITS/ML VIAL ONE (07:57)
[2022-07-30] MEDS ORDERED: PHENYLEPHRINE HCL 10 MG/1 ML SINGLE DOSE VIAL ONE (07:57)
[2022-07-30] MEDS ORDERED: ONDANSETRON 4 MG/2 ML VIAL ONE (07:57)
[2022-07-30 08:45] LABS: ANISOCYTOSIS 3+; MACROCYTOSIS 0; TEAR DROP CELLS 2+
[2022-07-30] MEDS ORDERED: BENZOCAINE 28 GM HEMORRHOIDAL OINTMENT TP PRN (09:31)
[2022-07-30] MEDS ORDERED: METHYLERGONOVINE MALEATE 0.2 MG/1 ML AMP IM PRN (09:31)
[2022-07-30] MEDS ORDERED: WITCH HAZEL 50% (TUCKS) 40 PAD/JAR PAD TP PRN (09:31)
[2022-07-30] MEDS ORDERED: ACETAMINOPHEN 325 MG TABLET (FP) PO PRN (09:31)
[2022-07-30] MEDS ORDERED: OXYTOCIN 20 UNITS in 0.9% NS 20 UNIT/1,000 ML INFUS.BAG IV ONE (10:06)
[2022-07-30 10:08] LABS: CORD HCO3 23.3 mmHg (20-29); CORD PCO2 48.6 mmHg (30-78); CORD pH 7.298 (7.14-7.44)
[2022-07-30] MEDS: OXYTOCIN 20 UNITS in 0.9% NS 20 UNIT/1,000 ML INFUS.BAG IV SCH ×2 (10:10→16:15)
[2022-07-30] MEDS: PRENATAL VITAMINS W/ FOLIC ACID TABLET (FP) PO SCH (12:00)
[2022-07-30] MEDS: FERROUS SO4 325 MG TABLET (FP) PO SCH ×2 (12:00→22:41)
[2022-07-30] MEDS: IBUPROFEN 800 MG/8 ML IJ IVPB PRN (16:50)
[2022-07-31] MEDS: IBUPROFEN 800 MG/8 ML IJ IVPB PRN (01:33)
[2022-07-31] MEDS: SIMETHICONE 80 MG TAB.CHEW (FP) PO PRN ×2 (01:33→21:18)
[2022-07-31 07:57] LABS: BASO % 1.1 % (0-2.0); EOS % 1.2 % (0-4.5); HEMATOCRIT 31.7 % (32.4-45.2); LYMPH % 17.5 % (8-40); MCH 21.8 pg (25.7-33.7); MCHC 31.4 g/dl (32.0-36.0); MEAN CELL VOLUME 69.5 fl (80-96); MEAN PLT VOLUME 9.4 fl (7.5-11.1); MONO % 7.9 % (3.8-10.2); NEUT % 72.3 % (42.8-82.8); PLATELET COUNT 168 10^3/uL (134-434); RBC 4.56 M/mm3 (3.60-5.2); RDW 28.8 % (11.6-15.6); WHITE BLOOD COUNT 6.8 K/mm3 (4.0-10.0)
[2022-07-31 09:02] LABS: ANISOCYTOSIS 3+; MACROCYTOSIS 0
[2022-07-31] MEDS: PRENATAL VITAMINS W/ FOLIC ACID TABLET (FP) PO SCH (09:14)
[2022-07-31] MEDS: FERROUS SO4 325 MG TABLET (FP) PO SCH ×2 (09:14→21:19)
[2022-07-31] MEDS: IBUPROFEN 600 MG TABLET (FP) PO PRN ×3 (09:14→21:18)
[2022-07-31] MEDS ORDERED: BISACODYL 10 MG SUPP.RECT RC PRN (09:31)
[2022-07-31 09:37] VITALS: RESP 18
[2022-07-31] MEDS ORDERED: oxyCODONE HCL 5 MG TABLET PO PRN ×2 (21:31)
[2022-08-01] MEDS: FERROUS SO4 325 MG TABLET (FP) PO SCH (09:37)
[2022-08-01] MEDS: IBUPROFEN 600 MG TABLET (FP) PO PRN (09:37)
[2022-08-01] MEDS: PRENATAL VITAMINS W/ FOLIC ACID TABLET (FP) PO SCH (09:37)
[2022-08-01 09:43] VITALS: BP 104/61; PULSE 61; TEMP 97.7
== END 2022-08-01 12:40 | disposition home or self-care (01) | DRG 785 ==
LOC: JLDR 05:50 → J3W 11:45
PROVIDERS: ADMIT Obstetrics & Gynecology; ATTEND Obstetrics & Gynecology
PROC: 10D00Z1 Extraction of Products of Conception, Low, Open Approach (ICD-10-PCS; principal; 2022-07-30)
PROC: 0UT70ZZ Resection of Bilateral Fallopian Tubes, Open Approach (ICD-10-PCS; 2022-07-30)
DX: O34.219 Maternal care for unspecified type scar from previous cesarean delivery (principal); O24.429 Gestational diabetes mellitus in childbirth, unspecified control; O36.63X0 Maternal care for excessive fetal growth, third trimester, not applicable or unspecified; Z3A.38 38 weeks gestation of pregnancy; Z37.0 Single live birth; Z30.2 Encounter for sterilization
CPT/HCPCS: 36415; 36600; 82803; 85025; 86762; 87340; 88302-TC; 88307-TC

== ENCOUNTER 2024-07-31 12:22 | Day surgery (SDC) | payer OTHER ==
[2024-07-31] MEDS: IRON SUCROSE INJECTION 300 MG in SODIUM CHLORIDE 250 ML IVPB ONE (12:29)
[2024-07-31 12:34] LABS: BASO % 1.2 % (0-2.0); EOS % 1.4 % (0-4.5); HEMATOCRIT 28.2 % (32.4-45.2); HEMOGLOBIN 8.5 GM/dL (10.7-15.3); LYMPH % 32.3 % (8-40); MCH 19.8 pg (25.7-33.7); MCHC 30.1 g/dl (32.0-36.0); MEAN CELL VOLUME 65.9 fl (80-96); MEAN PLT VOLUME 10.5 fl (7.5-11.1); MONO % 10.6 % (3.8-10.2); NEUT % 54.5 % (42.8-82.8); PLATELET COUNT 263 10^3/uL (134-434); RBC 4.28 M/mm3 (3.60-5.2); RDW 18.3 % (11.6-15.6); WHITE BLOOD COUNT 5.5 K/mm3 (4.0-10.0)
[2024-07-31 13:14] LABS: ANISOCYTOSIS 2+; MACROCYTOSIS 1+
[2024-07-31 14:26] VITALS: RESP 18; TEMP 98
[2024-07-31 14:29] VITALS: BP 103/61; PULSE 82
== END 2024-07-31 14:25 | disposition home or self-care (01) ==
LOC: JONCCHEMO 12:22 → J7W 12:23 → JONCCHEMO 14:25
PROVIDERS: ATTEND Internal Medicine Hematology & Oncology
PROC: 3E033GC Introduction of Other Therapeutic Substance into Peripheral Vein, Percutaneous Approach (ICD-10-PCS; principal; 2024-07-31)
DX: D50.8 Other iron deficiency anemias (principal)
CPT/HCPCS: 36415; 84703; 85025; 96365; J1756

== ENCOUNTER 2024-08-21 12:12 | Day surgery (SDC) | payer OTHER ==
[2024-08-21] MEDS: IRON SUCROSE INJECTION 300 MG in SODIUM CHLORIDE 250 ML IVPB ONE (12:30)
[2024-08-21 13:25] LABS: BASO % 1.7 % (0-2.0); EOS % 2.6 % (0-4.5); HEMATOCRIT 34.7 % (32.4-45.2); HEMOGLOBIN 10.6 GM/dL (10.7-15.3); LYMPH % 32.4 % (8-40); MCH 22.2 pg (25.7-33.7); MCHC 30.6 g/dl (32.0-36.0); MEAN CELL VOLUME 72.4 fl (80-96); MONO % 8.9 % (3.8-10.2); NEUT % 54.4 % (42.8-82.8); RBC 4.79 M/mm3 (3.60-5.2); RDW 28.7 % (11.6-15.6); WHITE BLOOD COUNT 4.3 K/mm3 (4.0-10.0)
[2024-08-21 13:50] LABS: ANISOCYTOSIS 2+; MACROCYTOSIS 0; OVALOCYTE 1+
[2024-08-21 15:35] VITALS: RESP 16; TEMP 97.2
[2024-08-21 15:43] VITALS: BP 105/62; PULSE 69
== END 2024-08-21 14:30 | disposition home or self-care (01) ==
LOC: JONCCHEMO 12:12
PROVIDERS: ATTEND Internal Medicine Hematology & Oncology
PROC: 3E033GC Introduction of Other Therapeutic Substance into Peripheral Vein, Percutaneous Approach (ICD-10-PCS; principal; 2024-08-21)
DX: D50.9 Iron deficiency anemia, unspecified (principal)
CPT/HCPCS: 36415; 84703; 85025; 96365; J1756

== ENCOUNTER 2024-11-02 13:55 | Day surgery (SDC) | payer OTHER ==
[2024-11-02] MEDS: IRON SUCROSE INJECTION 300 MG in SODIUM CHLORIDE 250 ML IVPB ONE (14:27)
[2024-11-02 16:12] VITALS: RESP 18; TEMP 98.1
[2024-11-02 16:16] VITALS: BP 102/63; PULSE 77
== END 2024-11-02 16:19 | disposition home or self-care (01) ==
LOC: JONCNONCHE 13:55
PROVIDERS: ATTEND Internal Medicine Hematology & Oncology
PROC: 3E033GC Introduction of Other Therapeutic Substance into Peripheral Vein, Percutaneous Approach (ICD-10-PCS; principal; 2024-11-02)
DX: D50.9 Iron deficiency anemia, unspecified (principal)
CPT/HCPCS: 84703; 96365; J1756